=== PATIENT | male | born 1950 | race Caucasian/White ===

== ENCOUNTER 2018-03-01 07:42 | Emergency (ER) | payer MEDICARE, MEDICAID ==
[2018-03-01 07:52] VITALS: TEMP 98.1
--- NOTE | 2018-03-01 08:12 | C.PDOC ---
History Of Present Illness 68 y/o male with PMH of HTN presents to the ED biba c/o epistaxis episode x 2 hours. Pt bent over to tie his shoes this morning and experienced epistaxis, unable to control at home, prompting ED visit. No active bleeding now. Seen a pprox. 5 days ago at [facility] [place] for similar complaint, discharged home with Afrin, last dose this morning. Compliant with HTN medications, but did not take his dose of Amlodipine this morning. Denies dizziness, vision changes, palpitations, headache, abdominal pain, N/V, chest pain, SOB, weakness, numbness, paresthesias, or any other associated complaints. Time Seen by Provider: 03/01/18 07:50 Chief Complaint (Nursing): ENT Problem History Per: Patient Past Medical History Reviewed: Historical Data, Nursing Documentation, Vital Signs Vital Signs: Last Vital Signs Temp 98.1 F 03/01/18 07:49 Pulse 88 03/01/18 07:49 Resp 20 03/01/18 07:49 BP 146/82 03/01/18 07:49 Pulse Ox 98 03/01/18 07:49 - Medical History PMH: HTN Family History: States: No Known Family Hx - Social History Hx Alcohol Use: Yes Hx Substance Use: No - Immunization History Hx Tetanus Toxoid Vaccination: No Hx Influenza Vaccination: Yes Hx Pneumococcal Vaccination: Yes Review Of Systems Constitutional: Negative for: Fever, Chills Eyes: Negative for: Vision Change Physical Exam - Physical Exam Appears: Well, Non-toxic, No Acute Distress Skin: Normal Color, Warm, Dry Head: Atraumatic, Normacephalic, No Tenderness Eye(s): bilateral: Normal Inspection, PERRL, EOMI Ear(s): Bilateral: Normal Nose: Normal, No Epistaxis, No Deformity, No Tenderness, No Septal Hematoma, Other (dried blood bilateral nares; no active anterior or posterior bleeding) Oral Mucosa: Moist Throat: Normal Neck: Normal, Normal ROM Cardiovascular: Rhythm Regular Respiratory: Normal Breath Sounds Gastrointestinal/Abdominal: Normal Exam Back: Normal Inspection, No CVA Tenderness Extremity: Normal ROM, No Tenderness, Capillary Refill (<2s), No Deformity, No Swelling Extremity: Bilateral: Atraumatic, No Pedal Edema, Normal Color And Temperature, Normal ROM Pulses: Left Radial: Normal, Right Radial: Normal Neurological/Psych: Oriented x3, Normal Speech, Normal Cognition, Normal Cranial Nerves, Normal Motor, Normal Sensation Gait: Steady ED Course And Treatment - Laboratory Results Result Diagrams: 03/01/18 08:17 03/01/18 08:17 Lab Interpretation: No Acute Changes O2 Sat by Pulse Oximetry: 98 Medical Decision Making Medical Decision Making: Initial Plan: * CBC * CMP * Coags * Reassess and disposition Patient with no active bleeding throughout ED visit, asymptomatic with normal hemoglobin and coags. No active bleeding on exam. Stable for discharge home. Educated at length on proper hemostasis technique. Patient demonstrated technique and verbalized understanding. Patient will call Dr. Auguste, ENT today for followup. Diagnostic testing results and plan of care discussed with patient, and strict instructions given regarding prescriptions, importance of follow up, and signs to return to Emergency Department, to include uncontrollable epistaxis, headache, dizziness, vision changes, chest pain, or any other new/worsening symptoms. Patient verbalizes understanding of discussion. Patient A&Ox3, ambulating with steady gait, stable for discharge home. Disposition - Disposition Referrals: Adam Auguste MD [Staff Provider] - Disposition: HOME/ ROUTINE Disposition Time: 09:00 Condition: GOOD Additional Instructions: Continuar los medicamentos caseros segn lo prescrito. Sigue con ENT hoy Seguimiento con el mdico de cabecera dentro de 2 alvarado. Regrese a la anamaria de emergencias con cualquier sntoma nuevo o que empeore Instructions: Nosebleeds (DC) Forms: [employer] (Swiss) Print Language: INDONESIAN - Clinical Impression Clinical Impression: Epistaxis
[2018-03-01 08:21] LABS: BASO % 0.5 % (0.0-2.0); EOS # 0.1 K/uL (0.0-0.7); EOS % 0.9 % (0.0-4.0); LYMPH # 1.6 K/uL (1.0-4.3); LYMPH % 17.7 % (20.0-40.0); MEAN CELL VOLUME 95.4 fL (80.0-94.0); MEAN CORPUSCULAR HEMOGLOBIN 32.4 pg (27.0-31.0); MEAN CORPUSCULAR HGB CONC 33.9 g/dL (33.0-37.0); MEAN PLATELET VOLUME 11.1 fL (7.2-11.7); MONO # 0.6 K/uL (0.0-0.8); MONO % 6.2 % (0.0-10.0); NEUT # 6.7 K/uL (1.8-7.0); NEUT % 74.7 % (50.0-75.0); NRBC % 0.1 % (0.0-2.0); RBC 4.02 Mil/uL (4.40-5.90); RED CELL DISTRIBUTION WIDTH 13.8 % (11.5-14.5)
[2018-03-01 08:33] LABS: ALB/GLOB RATIO 1.5 (1.0-2.1); ALBUMIN 4.3 g/dL (3.5-5.0); ALT/SGPT 31 U/L (21-72); AST/SGOT 29 U/L (17-59); BLOOD UREA NITROGEN 14 mg/dL (9-20); CALCIUM 8.9 mg/dl (8.6-10.4); GFR NON-AFRICAN AMERICAN > 60
[2018-03-01 08:59] VITALS: BP 117/74; PULSE 66; RESP 18
[2018-03-01 09:00] LABS: INR 1.1; PROTHROMBIN TIME 11.8 SECONDS (9.7-12.2)
[2018-03-01 09:03] VITALS: O2SAT 98
== END 2018-03-01 09:13 | disposition home or self-care (01) ==
LOC: C.ER 07:42
DX: R04.0 Epistaxis (principal); I10 Essential (primary) hypertension

== ENCOUNTER 2018-03-03 08:12 | Emergency (ER) | payer MEDICARE, MEDICAID ==
--- NOTE | 2018-03-03 10:52 | C.PDOC ---
History Of Present Illness 68 y/o M p/w epistaxis from both nares since 1 hour prior to arrival. Patient had epistaxis in this ED and [facility] ED earlier this week, had packing performed, saw Dr. Auguste ENT in office 2 days ago, had packing removed. Denies dyspnea, vomiting, palpitations. Not on anticoagulation. Time Seen by Provider: 03/03/18 08:23 Chief Complaint (Nursing): ENT Problem Past Medical History Vital Signs: Last Vital Signs Temp 97.9 F 03/03/18 08:20 Pulse 99 H 03/03/18 08:20 Resp 20 03/03/18 08:20 BP 132/83 03/03/18 08:20 Pulse Ox 96 03/03/18 08:20 - Medical History PMH: HTN Family History: States: No Known Family Hx - Social History Hx Alcohol Use: Yes Hx Substance Use: No - Immunization History Hx Tetanus Toxoid Vaccination: No Hx Influenza Vaccination: Yes Hx Pneumococcal Vaccination: No Review Of Systems Except As Marked, All Systems Reviewed And Found Negative. Constitutional: Negative for: Fever Respiratory: Negative for: Shortness of Breath Physical Exam - Physical Exam Additional Physical Exam Comments: Gen: NAD Head: NC/AT Eyes: PERRL ENT: Bleeding from both nostrils, more on R. Neck: Supple CV: Regular rate Abd: Soft, NT Skin: No rash Neuro: Alert ED Course And Treatment O2 Sat by Pulse Oximetry: 96 Medical Decision Making Medical Decision Making: Posterior rhinorocket placed in R nare with hemostasis. Doxycycline prescribed. Dr. Auguste recommends discharge home and f/u with him in office on Monday, states office will be open in morning. Disposition - Disposition Referrals: Adam Auguste MD [Staff Provider] - Disposition: HOME/ ROUTINE Disposition Time: 10:48 Condition: STABLE Additional Instructions: Dr. Auguste's office is open on Monday in the morning. Prescriptions: RX: Doxycycline Monohydrate 1 cap PO BID #14 capsule Instructions: Nosebleeds Forms: [facility] (Italian) - Clinical Impression Clinical Impression: Epistaxis
[2018-03-03 11:17] VITALS: BP 129/83; PULSE 86; RESP 18; TEMP 98.2
[2018-03-03 11:42] VITALS: O2SAT 96
== END 2018-03-03 11:24 | disposition home or self-care (01) ==
LOC: C.ER 08:12
DX: R04.0 Epistaxis (principal); I10 Essential (primary) hypertension

== ENCOUNTER 2018-03-03 20:42 | Inpatient (IN) | payer MEDICARE, MEDICAID ==
[2018-03-03 21:52] LABS: BASO # 0.1 K/uL (0.0-0.2); BASO % 0.7 % (0.0-2.0); EOS # 0.1 K/uL (0.0-0.7); EOS % 0.4 % (0.0-4.0); HEMOGLOBIN 12.5 g/dL (12.0-18.0); LYMPH # 2.4 K/uL (1.0-4.3); LYMPH % 16.7 % (20.0-40.0); MEAN CELL VOLUME 94.8 fL (80.0-94.0); MEAN CORPUSCULAR HEMOGLOBIN 31.5 pg (27.0-31.0); MEAN CORPUSCULAR HGB CONC 33.2 g/dL (33.0-37.0); MEAN PLATELET VOLUME 11.8 fL (7.2-11.7); MONO % 6.8 % (0.0-10.0); NEUT % 75.4 % (50.0-75.0); RBC 3.96 Mil/uL (4.40-5.90); RED CELL DISTRIBUTION WIDTH 13.8 % (11.5-14.5); WHITE BLOOD COUNT 14.5 K/uL (4.8-10.8)
[2018-03-03 22:03] LABS: INR 1.2; PROTHROMBIN TIME 12.6 SECONDS (9.7-12.2)
--- NOTE | 2018-03-03 22:20 | C.PDOC ---
History Of Present Illness 68 year old male presents to the ER with epistaxis from the left nare since approx 1900. Patient was seen earlier today in our ER, as well as on 03/01/18 for epistaxis from the right nare. This morning the right nare was packed with A/P packing, patient was given neosynephrine spray and instructed to follow up with Dr. Auguste on 03/04/18. Patient has also been seen in several other EDs in the last 1 week for epistaxis complaints. He denies headache, dizziness, chest pain, SOB, trauma/injuries. Time Seen by Provider: 03/03/18 20:59 Chief Complaint (Nursing): ENT Problem History Per: Patient, Family History/Exam Limitations: None Onset/Duration Of Symptoms: Hrs Current Symptoms Are (Timing): Still Present Symptoms Have Been: Episodic Severity: Mild Past Medical History Reviewed: Historical Data, Nursing Documentation, Vital Signs Vital Signs: Last Vital Signs Temp 98.1 F 03/03/18 20:51 Pulse 104 H 03/03/18 20:51 Resp 22 03/03/18 20:51 BP 156/88 H 03/03/18 20:51 Pulse Ox 98 03/03/18 20:51 - Medical History PMH: HTN Family History: States: No Known Family Hx - Social History Hx Alcohol Use: Yes Hx Substance Use: No - Immunization History Hx Tetanus Toxoid Vaccination: No Hx Influenza Vaccination: Yes Hx Pneumococcal Vaccination: Yes Review Of Systems Constitutional: Negative for: Fever ENT: Positive for: Other (Epistaxis) Cardiovascular: Negative for: Chest Pain, Palpitations Respiratory: Negative for: Shortness of Breath Neurological: Negative for: Weakness, Numbness, Headache, Dizziness Physical Exam - Physical Exam Appears: Well, Non-toxic, Other (Mildly uncomfortable) Skin: Normal Color, Warm, Dry, No Rash Head: Normacephalic Eye(s): bilateral: Normal Inspection Nose: Other (Packing in right nare with no bleeding. Mild blood oozing from left nare.) Oral Mucosa: Moist Throat: Normal, No Erythema, No Exudate, No Drooling, No Other (no blood in posterior oropharynx) Neck: Normal, Supple Cardiovascular: Rhythm Regular (Mildly tachycardic), No Murmur Respiratory: Normal Breath Sounds, No Rales, No Rhonchi, No Wheezing Gastrointestinal/Abdominal: Normal Exam, Bowel Sounds, Soft, No Tenderness Neurological/Psych: Oriented x3 ED Course And Treatment - Laboratory Results Result Diagrams: 03/06/18 07:51 03/06/18 07:51 O2 Sat by Pulse Oximetry: 98 (Room air) Pulse Ox Interpretation: Normal Progress Note: Neosyneprhine sprayed into left nare. On reassessment, patient continued to have bleeding. Discussed patient with Dr. Auguste, who recommended packing of left nare and admission to hospitalist with him on consult. Discussed patient with hospitalist, since patient is insured, will admit to medicine insulation cutter and former. - Physician Consult Information Physician Contacted: Viviane Worthy Outcome Of Conversation: Discussed patient with medicine insulation cutter and former, she agrees with admission for recurrent epistaxis, B/L nasal packing. Dr. Auguste consulted for ENT. Disposition - Disposition Disposition: HOSPITALIZED Disposition Time: 23:11 Condition: STABLE - Clinical Impression Clinical Impression: Epistaxis, Recurrent epistaxis - Scribe Statement The provider has reviewed the documentation as recorded by the Scribyon Adams All medical record entries made by the Herminioibyon were at my direction and personally dictated by me. I have reviewed the chart and agree that the record accurately reflects my personal performance of the history, physical exam, medical decision making, and the department course for this patient. I have also personally directed, reviewed, and agree with the discharge instructions and disposition. Decision To Admit - Pt Status Changed To: Hospital Disposition Of: Observation - . Bed Request Type: Regular Admitting Physician: Viviane Worthy Patient Diagnosis: Epistaxis, Recurrent epistaxis
[2018-03-03 22:21] LABS: ALB/GLOB RATIO 1.5 (1.0-2.1); ALBUMIN 4.6 g/dL (3.5-5.0); ALT/SGPT 30 U/L (21-72); AST/SGOT 22 U/L (17-59); BLOOD UREA NITROGEN 13 mg/dL (9-20); GFR NON-AFRICAN AMERICAN > 60
[2018-03-04] MEDS ORDERED: EPINEPHrine 1:1000 Nasal Sol(30mL) ONE (00:57)
[2018-03-04] MEDS ORDERED: Midazolam 2 MG/2 ML VIAL ONE (01:31)
[2018-03-04] MEDS ORDERED: Propofol 10 mg/ml Inj (20 ML) ONE (01:31)
[2018-03-04] MEDS ORDERED: Succinylcholine Chloride 20 mg/ml Syr (5 ml) IV ONE (01:49)
[2018-03-04] MEDS ORDERED: HYDROmorphone 0.5 mg/0.5 ml ISec IVP PRN (02:01)
[2018-03-04] MEDS ORDERED: Oxycodone/Acetaminophen 5/325 mg Tab PO PRN (02:04)
[2018-03-04 03:21] VITALS: RESP 20
[2018-03-04 08:29] LABS: HEMOGLOBIN 11.2 g/dL (12.0-18.0); MEAN CORPUSCULAR HEMOGLOBIN 32.4 pg (27.0-31.0); MEAN CORPUSCULAR HGB CONC 33.8 g/dL (33.0-37.0); MEAN PLATELET VOLUME 12.3 fL (7.2-11.7); RBC 3.46 Mil/uL (4.40-5.90); WHITE BLOOD COUNT 13.6 K/uL (4.8-10.8)
[2018-03-04 08:35] LABS: IRON 32 ug/dL (49-181)
[2018-03-04 08:44] LABS: % IRON SATURATION 10 (20-55); TOTAL IRON BINDING CAPACITY 321 ug/dL (250-450)
[2018-03-04 09:41] LABS: FOLATE 18.2 ng/mL
[2018-03-04] MEDS ORDERED: Pneumococcal 23-Valent Vaccine IM ONE (14:00)
[2018-03-05 07:45] LABS: HEMOGLOBIN 11.7 g/dL (12.0-18.0); MEAN CELL VOLUME 95.9 fL (80.0-94.0); MEAN CORPUSCULAR HEMOGLOBIN 32.2 pg (27.0-31.0); RBC 3.62 Mil/uL (4.40-5.90); WHITE BLOOD COUNT 18.8 K/uL (4.8-10.8)
[2018-03-05 07:46] LABS: MEAN CORPUSCULAR HGB CONC 33.6 g/dL (33.0-37.0); MEAN PLATELET VOLUME 11.8 fL (7.2-11.7); RED CELL DISTRIBUTION WIDTH 14.1 % (11.5-14.5)
[2018-03-05 08:00] LABS: BLOOD UREA NITROGEN 12 mg/dL (9-20); GFR NON-AFRICAN AMERICAN > 60
--- NOTE | 2018-03-05 10:44 | HP ---
The patient was seen and examined at the bedside on 03/04/2018. CHIEF COMPLAINT: Nose bleeding. HISTORY OF PRESENT ILLNESS: Mr. Franko Salgado is a 68-year-old male, who came to the emergency room with epistaxis from the left nose, The patient was seen earlier on the day of admission for epistaxis of the right naris, this morning the right naris was packed with AP packing, was given , epinephrine. Advised to follow with Dr. Auguste on 03/04/2018. The patient then has been seen in the multiple ER over the last week for epistaxis. He denies any chest pain, shortness of breath. No weakness. No nausea, vomiting, or diarrhea. No hematuria. No headache. No dizziness. PAST MEDICAL HISTORY: Hypertension. FAMILY HISTORY: Unknown. SOCIAL HISTORY: Alcohol, yes. No smoking. No drugs. REVIEW OF SYSTEMS: The patient was seen and examined at the bedside. Looking comfortable. No fever. No chills. No hematuria or hematochezia. No swelling of the leg. No chest pain. No palpitation. No headaches. No dizziness. PHYSICAL EXAMINATION: VITAL SIGNS: Temperature 98.1, pulse 104, respiratory rate 22, blood pressure 152/88, pulse oximetry 98. HEENT: Head: Normocephalic and atraumatic. Eyes: PERRLA. Extraocular muscles are intact. Conjunctivae clear. Nose patent. Mucous membranes are moist. NECK: Supple. No carotid bruits, JVD, or thyromegaly. CHEST: Bilaterally symmetrical. HEART: S1 and S2 positive. LUNGS: Clear to auscultation. ABDOMEN: Soft. Bowel sounds present. No organomegaly. EXTREMITIES: No edema. No cyanosis. NEUROLOGIC: The patient is awake and alert. Follows simple commands. LABORATORY DATA: White blood cells 14.5, hemoglobin 12.5, hematocrit 37.5, platelets 154. Repeat hemoglobin is 11.2. Sodium 140, potassium 3.7, BUN 13, creatinine 0.8. Glucose 122, 131. Iron 32, saturation is 10. ASSESSMENT AND PLAN: Mr. Franko Salgado is a 68-year-old male with leukocytosis, anemia, hyperglycemia, iron deficiency, came with intractable, had ER visits . Dr. Auguste did the packing but still it was bleeding, and today, he went to OR for epistaxis, anterior/posterior packing of naris, bill by Dr. Adam Auguste MD. History of hypertension, stable. Gastric and deep venous thrombosis prophylaxis. Repeat labs. Ear, Nose, Throat is on the case. We will follow. Viviane oWrthy MD MTDKyra
--- NOTE | 2018-03-05 12:30 | CP.PCM.PN ---
Subjective - Date & Time of Evaluation Date of Evaluation: 03/05/18 Time of Evaluation: 12:28 - Subjective Subjective: No bledding. Pack removed, no epistaxis noted on right nose: no epistaxis oc/op: no blooding pnd a/p: epistaxis controled ok to d/c home if not bleeding after 2 hours Objective - Vital Signs/Intake and Output Vital Signs (last 24 hours): Temp Pulse Resp BP Pulse Ox 98.2 F 93 H 20 127/80 98 03/05/18 08:34 03/05/18 08:34 03/05/18 08:34 03/05/18 08:34 03/05/18 12:00 - Medications Medications: Current Medications Amlodipine Besylate (Norvasc) 5 mg PO DAILY [facility] Last Admin: 03/05/18 09:17 Dose: 5 mg Losartan Potassium (Cozaar) 50 mg PO DAILY [facility] Last Admin: 03/05/18 09:17 Dose: 50 mg Montelukast Sodium (Singulair) 10 mg PO [facility] Last Admin: 03/04/18 21:08 Dose: 10 mg Moxifloxacin HCl (Avelox) 400 mg PO DAILY [facility]; Protocol Last Admin: 03/05/18 09:17 Dose: 400 mg Oxycodone/Acetaminophen (Percocet 5/325 Mg Tab) 1 tab PO Q4H PRN PRN Reason: Pain, moderate (4-7) Stop: 03/07/18 02:05 Pneumococcal Polyvalent Vaccine (Pneumovax 23 Vaccine) 0.5 ml IM .ONCE ONE Stop: 03/06/18 10:01 Rosuvastatin Calcium (Crestor) 5 mg PO [facility] Last Admin: 03/04/18 21:08 Dose: 5 mg - Labs Labs: 03/05/18 07:30 03/05/18 07:30 PT 12.6 SECONDS (9.7-12.2) H 03/03/18 21:48 INR 1.2 03/03/18 21:48 APTT 30 SECONDS (21-34) 03/03/18 21:48
[2018-03-06 01:30] VITALS: TEMP 97.6
--- NOTE | 2018-03-06 04:20 | PN ---
DATE: 03/05/2018 SUBJECTIVE: The patient was seen and examined at the bedside on 03/05/2018, looking comfortable. Packing removed by Dr. Auguste. No bleeding or epistaxis after that. No blood holding in the nostril. Epistaxis controlled. No fever. No chills. No hematuria. No hematochezia. No headache. No dizziness. No chest pain. No palpitation. PHYSICAL EXAMINATION: VITAL SIGNS: Temperature 98.2, pulse 93, respirations 20, blood pressure 127/80, pulse oximetry 98. HEENT: Head, normocephalic and atraumatic. Eyes, PERRLA. Extraocular muscles are intact. Conjunctivae clear. Nose patent. NECK: Supple. No carotid bruits. No JVD or thyromegaly. CHEST: Bilaterally symmetrical HEART: S1 and S2 positive. LUNGS: Clear to auscultation. ABDOMEN: Soft. Bowel sounds present. No organomegaly. EXTREMITIES: No edema. No cyanosis. NEUROLOGIC: The patient is awake and alert. Moving all four extremities. No focal deficits. MEDICATIONS: Norvasc, Cozaar, Singulair, Avelox, Percocet, Pneumovax, Crestor. LABORATORY DATA: White blood cell 18.8, hemoglobin 11.7, hematocrit 34.7, platelets 150. Sodium 138, potassium 3.6, BUN 12, creatinine 0.8, glucose 140. ASSESSMENT AND PLAN: Jack Salgado is a 68-year-old male with leukocytosis, anemia, hyperglycemia, came with epistaxis intractable, treated by Dr. Auguste. Now packing is removed. No epistaxis noted. No bleeding. White blood cell is a little bit high. Past medical history of hypertension, getting controlled. Gastric and deep venous thrombosis prophylaxis given. Getting Losartan for hypertension, Crestor for hypercholesterolemia, amlodipine for blood pressure, oxycodone given for pain, Singulair given. Repeat labs. We will follow up. Viviane Worthy MD
[2018-03-06 08:00] LABS: MEAN CELL VOLUME 95.9 fL (80.0-94.0); MEAN CORPUSCULAR HEMOGLOBIN 32.3 pg (27.0-31.0); MEAN CORPUSCULAR HGB CONC 33.7 g/dL (33.0-37.0); MEAN PLATELET VOLUME 11.3 fL (7.2-11.7); RBC 3.41 Mil/uL (4.40-5.90); RED CELL DISTRIBUTION WIDTH 13.9 % (11.5-14.5); WHITE BLOOD COUNT 13.9 K/uL (4.8-10.8)
[2018-03-06 08:12] LABS: BLOOD UREA NITROGEN 18 mg/dL (9-20); CALCIUM 8.7 mg/dl (8.6-10.4); GFR NON-AFRICAN AMERICAN > 60
--- NOTE | 2018-03-06 08:35 | CARD ---
APPROVED REPORT Date of service: 03/04/2018 EKG Measurement Heart [id number] <Conclusion> Normal sinus rhythm Normal ECG
[2018-03-06 08:43] VITALS: BP 103/66; PULSE 85
[2018-03-06] MEDS ORDERED: Pneumococcal 23-Valent Vaccine IM ONE (10:00)
[2018-03-06] MEDS ORDERED: Ferrous Fum/Folic Acid/IF/VI 1 Cap PO SCH (10:00)
[2018-03-06] MEDS ORDERED: Fluticasone Nasal 50 mcg/Spray NAS SCH (11:45)
--- NOTE | 2018-03-07 07:27 | DS ---
The patient was seen and examined at the bedside on 03/06/2018. CHIEF COMPLAINT: Nose bleeding. HISTORY OF PRESENT ILLNESS: Mr. Franko Salgado is a 68-year-old male, came to the emergency department with epistaxis from the left nostril. The patient was seen earlier on the day of admission for epistaxis of the nostril. This morning, naris was packed with package. The patient was sent home with epinephrine. Advised a followup with Dr. Auguste but the patient then been seen multiple times in the ER over the last week for epistaxis. He denies chest pain, shortness of breath, nausea, vomiting, or diarrhea. Finally, the patient was admitted. Dr. Sudheer Torres did the cauterization and packing. The patient was improved. The packing was removed. Now Dr. Auguste cleared the patient for discharge. was standing on the bedside. Nasal spray, Singulair, given because of congestion. Through the workers compensation attorney medical condition was explained to the and . Will follow up in my office tomorrow and will follow up with Dr. Auguste. PAST MEDICAL HISTORY: Hypertension. FAMILY HISTORY: Unknown. SOCIAL HISTORY: Alcohol, yes. No smoking. No drugs. No ethanol. REVIEW OF SYSTEMS: The patient was seen and examined at the bedside early in the morning, looking comfortable. No fever. No chills. No hematuria. No hematochezia. No headache. No dizziness. No chest pain. No palpitation. PHYSICAL EXAMINATION: VITAL SIGNS: Temperature 97.6, pulse 85, respiratory rate 20, blood pressure 107/56. HEENT: Head normocephalic and atraumatic. Eyes, PERRLA. Extraocular muscles are intact. Conjunctivae clear. Nose patent. Old blood clots are adhered to the nostrils; otherwise, no fresh bleeding. Mucous membranes moist. NECK: Supple. No carotid bruits or thyromegaly. CHEST: Bilaterally symmetrical. HEART: S1 and S2 positive. LUNGS: Clear to auscultation. ABDOMEN: Soft. Bowel sounds present. No organomegaly. EXTREMITIES: No edema. No cyanosis. NEUROLOGIC: The patient is awake and alert. Moving all four extremities. No focal deficits. LABORATORY DATA: White blood cell is 13.9, hemoglobin 11.0, hematocrit 32.7, platelets 158. Sodium 138, potassium 3.8, BUN 18, creatinine 0.8, glucose 107. ASSESSMENT AND PLAN: Mr. Franko Salgado is a 68-year-old male with leukocytosis trending down with anemia, hyperglycemia, iron deficiency, history of hypertension, was admitted with multiple times epistaxis. Procedure was done by Dr. Auguste. Packing removed. Gastric and deep venous thrombosis prophylaxis given. Losartan, Singulair, Zyrtec and nasal spray were given. Appreciated Dr. Auguste's input. He cleared the patient for discharge. This patient was advised and the patient's niece was standing on the bedside also. We will repeat labs. We will follow up. Viviane Worthy MD MTDD
[2018-03-11 03:15] VITALS: O2SAT 98
--- NOTE | 2018-03-15 01:34 | OP ---
PROCEDURE DATE: 03/06/2018 PREOPERATIVE DIAGNOSIS: Posterior epistaxis. POSTOPERATIVE DIAGNOSIS: Posterior epistaxis. SIGNIFICANT FINDINGS: Posterior epistaxis. DESCRIPTION OF PROCEDURE: The patient was brought into room, placed in supine position. Anesthesia was initiated through an ET tube. Packing was removed. Gomez was inflated to nasal cavity. The balloon was inflated with saline while it was in nasopharynx. Vaseline gauze was used to pack the nose from posterior to anterior direction on both sides. Clamp was used to secure the Gomez in place. The patient was taken off anesthesia, taken to recovery room in stable manner. Adam Auguste MD
== END 2018-03-06 13:30 | disposition home or self-care (01) | DRG 151 ==
LOC: C.ER 20:42 → C.3T 23:11 → C.9E 03-04 00:31 → C.3T 03-04 00:38 → C.6T 03-04 02:37 → OBSVTOIN 03-05 16:03
PROVIDERS: ADMIT Internal Medicine; ATTEND Internal Medicine
PROC: 2Y41X5Z Packing of Nasal Region using Packing Material (ICD-10-PCS; principal; 2018-03-05)
DX: R04.0 Epistaxis (principal); I10 Essential (primary) hypertension; E78.00 Pure hypercholesterolemia, unspecified; D72.829 Elevated white blood cell count, unspecified; D50.9 Iron deficiency anemia, unspecified

== ENCOUNTER 2018-03-25 10:31 | Emergency (ER) | payer MEDICARE, MEDICAID ==
[2018-03-25 10:43] VITALS: RESP 18
[2018-03-25] MEDS ORDERED: Oxymetazoline 0.05% Nasal Spray (30 ml) NS STA (11:32)
--- NOTE | 2018-03-25 11:35 | C.PDOC ---
History Of Present Illness 68 year old male presents to the emergency department with complaints of a frontal headache since yesterday. Patient describes the headache as 5/10 in severity, he states that it is not the worst headache of his life and denies thunderclap onset. Patient reports taking Motrin 3 hours ago, with no relief. Patient states that he thinks the headache is due to working 12 hours each day and only sleeping 3-4 hours per night. Patient denies trauma, fever, chills, nausea, vomiting, neck pain, and visual changes. Time Seen by Provider: 03/25/18 11:07 Chief Complaint (Nursing): ENT Problem History Per: Patient Past Medical History Vital Signs: Last Vital Signs Temp 98 F 03/25/18 10:40 Pulse 84 03/25/18 10:40 Resp 18 03/25/18 10:40 BP 126/68 03/25/18 10:40 Pulse Ox 97 03/25/18 10:40 - Medical History PMH: HTN - [facility] PACKING OF NASAL REGION USING PACKING MATERIAL (03/05/18) Family History: States: Unknown Family Hx - Social History Hx Alcohol Use: Yes Hx Substance Use: No - Immunization History Hx Tetanus Toxoid Vaccination: No Hx Influenza Vaccination: Yes Hx Pneumococcal Vaccination: Yes ED Course And Treatment O2 Sat by Pulse Oximetry: 97 Disposition - Disposition
--- NOTE | 2018-03-25 12:21 | C.PDOC ---
History Of Present Illness 68 year old male presents to the emergency department with complaints of epistaxis from his right nare status-post making a bowel movement today.Patient states that he recently underwent a cauterization procedure to the right nare by Dr. Auguste. Patient denies headache, nausea, vomiting. Patient states that he is not taking blood thinners. Time Seen by Provider: 03/25/18 11:07 Chief Complaint (Nursing): ENT Problem History Per: Patient History/Exam Limitations: no limitations Onset/Duration Of Symptoms: Hrs Current Symptoms Are (Timing): Still Present Location Of Bleeding: Right Nare Associated Symptoms: denies: Syncope, Lightheadedness, Nasal Congestion, Nasal Drainage Past Medical History Reviewed: Historical Data, Nursing Documentation, Vital Signs Vital Signs: Last Vital Signs Temp 98 F 03/25/18 10:40 Pulse 84 03/25/18 10:40 Resp 18 03/25/18 10:40 BP 126/68 03/25/18 10:40 Pulse Ox 97 03/25/18 10:40 - Medical History PMH: HTN Surgical History: No Surg Hx - [facility] Procedures PACKING OF NASAL REGION USING PACKING MATERIAL (03/05/18) Family History: States: No Known Family Hx - Social History Hx Alcohol Use: Yes Hx Substance Use: No - Immunization History Hx Tetanus Toxoid Vaccination: No Hx Influenza Vaccination: Yes Hx Pneumococcal Vaccination: Yes Review Of Systems Except As Marked, All Systems Reviewed And Found Negative. Constitutional: Negative for: Fever, Chills ENT: Positive for: Nose Discharge (epistaxis right nare) Gastrointestinal: Negative for: Nausea, Vomiting Musculoskeletal: Negative for: Neck Pain Physical Exam - Physical Exam Appears: Non-toxic, No Acute Distress Skin: Normal Color, Warm, Dry Head: Atraumatic, Normacephalic Eye(s): bilateral: Normal Inspection, PERRL, EOMI Nose: Other (No active bleeding from the nares B/L. Swollen turbinates B/L. Dry blood present in nares B/L/. ) Oral Mucosa: Moist Throat: Normal, No Other (blood in posterior oropharynx) Neck: Normal, Supple Neurological/Psych: Oriented x3, Normal Speech, Normal Cognition ED Course And Treatment O2 Sat by Pulse Oximetry: 97 (RA) Pulse Ox Interpretation: Normal Medical Decision Making Medical Decision Making: Plan: Afrin 30ml NS 11:57 Patient went to the bathroom in the ED and began bleeding again. Patient blew out clots with some oozing of blood. Patient instructed to apply pressure for 10 minutes. After 15 minutes of compress, no bleeding. Patient instructed to use Afrin twice daily, has already used it once in the ED, instructed to use before sleeping tonight. Patient will follow-up with Dr. Auguste. Disposition Counseled Patient/Family Regarding: Diagnosis, Need For Followup - Disposition Referrals: Adam Auguste MD [Staff Provider] - Disposition: HOME/ ROUTINE Disposition Time: 12:25 Condition: IMPROVED Additional Instructions: ARIANNA GOMES, thank you for letting us take care of you today. Your provider was Becka Jimenez MD and you were treated for NOSE BLEED. The emergency medical care you received today was directed at your acute symptoms. If you were prescribed any medication, please fill it and take as directed. It may take several days for your symptoms to resolve. Return to the Emergency Department if your symptoms worsen, do not improve, or if you have any other problems. Please contact your doctor in 1 day for a follow up appointment. Bring any paperwork you were given at discharge with you along with any medications you are taking to your follow up visit. Our treatment cannot replace ongoing medical care by a primary care provider outside of the emergency department. Thank you for allowing the [facility] team to be part of your care today. Prescriptions: Oxymetazoline 0.05% [Afrin 0.05%] 30 spr NS Q12H #1 bottle Instructions: Nosebleeds (DC) Forms: [facility] (Portuguese) Print Language: SWAZI - POA Present On Arrival: None - Clinical Impression Clinical Impression: Recurrent epistaxis - Scribe Statement The provider has reviewed the documentation as recorded by the Scribe (Moiz Chencho) Provider Attestation: All medical record entries made by the Scribe were at my direction and personally dictated by me. I have reviewed the chart and agree that the record accurately reflects my personal performance of the history, physical exam, medical decision making, and the department course for this patient. I have also personally directed, reviewed, and agree with the discharge instructions and disposition.
[2018-03-25 12:55] VITALS: BP 118/69; PULSE 69; TEMP 98.6; O2SAT 98
== END 2018-03-25 12:53 | disposition home or self-care (01) ==
LOC: C.ER 10:31
DX: R04.0 Epistaxis (principal); I10 Essential (primary) hypertension

== ENCOUNTER 2018-03-29 09:56 | Inpatient (IN) | payer MEDICARE, MEDICAID ==
[2018-03-29 10:49] LABS: BASO # 0.1 K/uL (0.0-0.2); EOS # 0.3 K/uL (0.0-0.7); LYMPH % 17.4 % (20.0-40.0); MONO # 0.5 K/uL (0.0-0.8)
[2018-03-29 10:55] LABS: BASO % 0.8 % (0.0-2.0); EOS % 2.9 % (0.0-4.0); HEMOGLOBIN 12.5 g/dL (12.0-18.0); LYMPH # 1.8 K/uL (1.0-4.3); MEAN CELL VOLUME 95.7 fL (80.0-94.0); MEAN CORPUSCULAR HEMOGLOBIN 31.8 pg (27.0-31.0); MEAN CORPUSCULAR HGB CONC 33.2 g/dL (33.0-37.0); MEAN PLATELET VOLUME 11.4 fL (7.2-11.7); MONO % 4.8 % (0.0-10.0); NEUT # 7.5 K/uL (1.8-7.0); NEUT % 74.1 % (50.0-75.0); NRBC % 0.1 % (0.0-2.0); RBC 3.92 Mil/uL (4.40-5.90); RED CELL DISTRIBUTION WIDTH 14.3 % (11.5-14.5); WHITE BLOOD COUNT 10.2 K/uL (4.8-10.8)
[2018-03-29 10:56] LABS: INR 1.1; PROTHROMBIN TIME 11.8 SECONDS (9.7-12.2)
[2018-03-29 11:22] LABS: ALB/GLOB RATIO 1.6 (1.0-2.1); ALBUMIN 4.4 g/dL (3.5-5.0); ALT/SGPT 23 U/L (21-72); AST/SGOT 24 U/L (17-59); BLOOD UREA NITROGEN 10 mg/dL (9-20); GFR NON-AFRICAN AMERICAN > 60
--- NOTE | 2018-03-29 11:32 | C.PDOC ---
History Of Present Illness 68yo male, sent to ER by Dr. Auguste for evaluation due to several episodes of epistaxis, with most recent episode occurring at 4AM today. Patient states he went to Dr. Auguste's office this morning and he was examined via a scope, and Dr. Auguste noted patient had a right sided posterior bleed. Per Dr. Auguste, since patient has a cochlear implant, the bleed cannot be cauterized and needs to be embolized. Patient sent to ER for further evaluation and possible examination by interventional neurosurgery. Patient at this time, has no complaints; he denies any headaches, weakness, and offers no additional complaints. Patient is not on any anti-coagulants. Time Seen by Provider: 03/29/18 10:19 Chief Complaint (Nursing): ENT Problem History Per: Patient History/Exam Limitations: None Onset/Duration Of Symptoms: Hrs Current Symptoms Are (Timing): Gone Past Medical History Reviewed: Historical Data, Nursing Documentation, Vital Signs Vital Signs: Last Vital Signs Temp 97.6 F 03/29/18 10:03 Pulse 72 03/29/18 10:03 Resp 17 03/29/18 10:03 BP 111/72 03/29/18 10:03 Pulse Ox 100 03/29/18 10:03 - Medical History PMH: HTN Surgical History: No Surg Hx - [facility] Procedures PACKING OF NASAL REGION USING PACKING MATERIAL (03/05/18) Family History: States: No Known Family Hx - Social History Hx Alcohol Use: Yes Hx Substance Use: No - Immunization History Hx Tetanus Toxoid Vaccination: Yes Hx Influenza Vaccination: Yes Hx Pneumococcal Vaccination: Yes Review Of Systems Constitutional: Negative for: Weakness Eyes: Negative for: Vision Change ENT: Positive for: Other (epistaxis, now resolved) Cardiovascular: Negative for: Chest Pain Respiratory: Negative for: Shortness of Breath Neurological: Negative for: Weakness, Numbness, Headache Physical Exam - Physical Exam Appears: Non-toxic, No Acute Distress Skin: Normal Color, Warm, Dry, No Pale Head: Atraumatic, Normacephalic Eye(s): bilateral: Normal Inspection, PERRL, EOMI Ear(s): Left: Other (cochlear implant noted), Right: Normal Nose: Normal, Other (dried blood noted to bilateral nares) Neck: Normal ROM, Supple Chest: Symmetrical Cardiovascular: Rhythm Regular Respiratory: Normal Breath Sounds Gastrointestinal/Abdominal: Normal Exam, Soft Extremity: Normal ROM Neurological/Psych: Oriented x3, Normal Speech, Normal Cognition, Normal Motor, Normal Sensation ED Course And Treatment - Laboratory Results Result Diagrams: 03/29/18 10:44 03/29/18 10:44 Lab Results: PT 11.8 SECONDS (9.7-12.2) 03/29/18 10:44 INR 1.1 03/29/18 10:44 APTT 34 SECONDS (21-34) 03/29/18 10:44 Total Bilirubin 0.4 mg/dL (0.2-1.3) 03/29/18 10:44 AST 24 U/L (17-59) 03/29/18 10:44 ALT 23 U/L (21-72) 03/29/18 10:44 Alkaline Phosphatase 57 U/L (38-126) 03/29/18 10:44 Total Protein 7.2 g/dL (6.3-8.3) 03/29/18 10:44 Albumin 4.4 g/dL (3.5-5.0) 03/29/18 10:44 Globulin 2.8 gm/dL (2.2-3.9) 03/29/18 10:44 Albumin/Globulin Ratio 1.6 (1.0-2.1) 03/29/18 10:44 O2 Sat by Pulse Oximetry: 100 (RA) Pulse Ox Interpretation: Normal Progress Note: Basic labs - CMP, CBC ordered. Paged R D MANAGER with Dr. Aguilar (Suzette Salazar). Labs reviewed, no clinically significant abnormalities noted. 12:[address] Aguilar, who states to admit under hospitalist. 1300: Case discussed with Dr. Das, who admits patient under her service. - Physician Consult Information Time Consulting Physician Contacted: 11:30 Physician Contacted: Marielos Salazar ([phone] [email or web address]) Outcome Of Conversation: will come to evaluate patient in the ED Disposition - Disposition Forms: [facility] (Persian) - Scribe Statement The provider has reviewed the documentation as recorded by the Azar Hartmann Provider Attestation: All medical record entries made by the Scribe were at my direction and personally dictated by me. I have reviewed the chart and agree that the record accurately reflects my personal performance of the history, physical exam, medical decision making, and the department course for this patient. I have also personally directed, reviewed, and agree with the discharge instructions and disposition.
[2018-03-29] MEDS ORDERED: Absorbable Gelatin Sponge Size 12-7 ONE (12:55)
[2018-03-29] MEDS ORDERED: Propofol 10 mg/ml Inj (20 ML) ONE (13:22)
[2018-03-29] MEDS ORDERED: Succinylcholine Chloride 20 mg/ml Syr (5 ml) IV ONE (13:22)
--- NOTE | 2018-03-29 13:28 | CP.PCM.CON ---
History of Present Illness - History of Present Illness History of Present Illness: 68 yeart old man with past medical history of hypertension and cochlear implant presenting from ENT office this am. The patient has had recurrent episodes of epistaxis last one was at 4 am . He went to his ENT and was scoped and told that it was a right Posterior epistaxis and could not be cautarized. He was sent to ed for further evaluation and management Review of Systems - EENT Ears: Decreased Hearing Past Patient History - Past Medical History & Family History Past Medical History?: Yes - Past Social History Smoking Status: Never Smoked - CARDIAC Hx Hypertension: Yes - HEENT Hx Epistaxis: Yes - MUSCULOSKELETAL/RHEUMATOLOGICAL Hx Falls: Yes - PSYCHIATRIC Hx Substance Use: No - SURGICAL HISTORY Other/Comment: HEARING AID IMPLANTS. Penile pump - ANESTHESIA Hx Anesthesia: Yes Hx Anesthesia Reactions: No Meds Allergies/Adverse Reactions: Allergies Allergy/AdvReac Type Severity Reaction Status Date / Time aspirin Allergy Verified 03/29/18 10:08 Penicillins Allergy Verified 03/29/18 10:08 Sulfa (Sulfonamide Allergy Verified 03/29/18 10:08 Antibiotics) Physical Exam - Constitutional Appears: Non-toxic - Head Exam Head Exam: ATRAUMATIC Results - Vital Signs Recent Vital Signs: Last Vital Signs Temp 97.6 F 03/29/18 10:03 Pulse 54 L 03/29/18 12:29 Resp 16 03/29/18 12:29 BP 124/74 03/29/18 12:29 Pulse Ox 100 03/29/18 13:01 - Labs Result Diagrams: 03/29/18 10:44 03/29/18 10:44 Labs: Laboratory Results - last 24 hr 03/29/18 03/29/18 03/29/18 10:44 10:44 10:44 WBC 10.2 RBC 3.92 L Hgb 12.5 Hct 37.5 MCV 95.7 H MCH 31.8 H MCHC 33.2 RDW 14.3 Plt Count 131 MPV 11.4 Neut % (Auto) 74.1 Lymph % (Auto) 17.[address] [place] % (Auto) 4.8 Eos % (Auto) 2.9 Baso % (Auto) 0.8 Neut # (Auto) 7.5 H Lymph # (Auto) 1.8 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
[2018-03-29] MEDS ORDERED: Lidocaine 1% 20 MG/2 ML PF AMP ONE (13:31)
--- NOTE | 2018-03-29 13:47 | PCM.IRPREO ---
Pre Procedure Note - History Proposed Procedure: Cerebral Angiogram, embolization of spatopalatine arteries b/l for epistaxis Pre-Op Diagnosis: Epistaxis - Previous Medical/Surgical History Cardiac: Hypertension Pain: 0. No Pain Previous Surgical History: Penile Implant; L and R cochlear implants - Pre Procedure Were any radiologic studies performed in the last 12 months: Not Applicable Was medical management performed in the past 24 months: Not Applicable Clinical indication for the procedure: epistaxis Have risks and benefits been explained to the patient: Yes Risks and benefits been explained to the patient: please see above Have alternatives to surgery explained to the patient as applicable: Yes (Planned procedure, benefits and risks including but not limited to groin infection, arterial occlusion, injury, renal impairment, CVA/Brain hemorrhage resulting in irreversible neurological deficits and even were explained to Mr.Diaz Taylor and in detail. Patient agrees to proceeed and informed consent was obtained.) - Allergies Allergies: Allergies aspirin Allergy (Verified 03/29/18 10:08) Penicillins Allergy (Verified 03/29/18 10:08) Sulfa (Sulfonamide Antibiotics) Allergy (Verified 03/29/18 10:08) - Current Medications Current Medications: Amlodipine 5mg daily Atorvastatin 10mg QOD Montelukast 10mg PRN - Physical Exam Vital Signs: Vital Signs 03/29/18 03/29/18 03/29/18 10:03 12:29 13:01 Temperature 97.6 F Pulse Rate 72 54 L Respiratory 17 16 Rate Blood Pressure 111/72 124/74 O2 Sat by Pulse 100 99 100 Oximetry Mental Status: Alert & Oriented x3 Neuro: WNL Heart: WNL Lungs: WNL - Specialist Directed Exam ENT: Other (dry blood noted via right nare; cochlear implants via Left and Right ears) - Impression Impression: 68 year old male with PmHx HTN,epistaxis PSHx cochlear implant, penile implant - Date & Time Date: 03/29/18 Time: 13:45
[2018-03-29] MEDS ORDERED: Rocuronium 10 mg/ml (5 ml) ONE (14:03)
[2018-03-29] MEDS ORDERED: Neostigmine 1:1000 (1 mg/ml) Inj ONE (14:43)
[2018-03-29] MEDS ORDERED: ePHEDrine 50 mg/ml Inj ONE (14:51)
[2018-03-29] MEDS ORDERED: Iodixanol 320 MG/ML 100 ML BOTTLE IV ONE (14:55)
--- NOTE | 2018-03-29 15:53 | CP.PCM.HP ---
History of Present Illness - History of Present Illness History of Present Illness: PGY-[address] Burt Patient is a 68 year old male with PMHx HTN, and deafness (unclear if congenital vs secondary) who is admitted to hospitalist service status-post IR embolization of sphenopalantine arteries b/l for uncontrolled epistaxis. History obtained primarily via IR AD COPY WRITER as patient somnolent status-post procedure/anesthesia. Per patient's , patient has a history of thrombocytopenia, though they are unsu re of the cause and his platelets today are within normal limits. She states that he had been having nose bleeds more frequently recently and patient was referred to Dr. Maay, ENT who peformed a scope but did not cauterize due to contraindication of bilateral cochlear implants. Patient was referred to IR for cauterization. PMHx: HTN, bilateral deafness Allergies: ASA, Penicillin, Sulfa (reaction unknown) Surgical Hx: Cochlear impants, penile implant Family Hx: No significant family hx Medications: Norvasc 5 mg daily, Telmisartan 20 mg po daily Social Hx: Denies tobacco, alcohol, drug use PMD: Dr. William Murray Present on Admission - Present on Admission Any Indicators Present on Admission: No Review of Systems - Constitutional Constitutional: absent: Chills, Fatigue, Fever - EENT Eyes: absent: Blurred Vision, Diplopia Ears: absent: Dizziness Nose/Mouth/Throat: absent: Epistaxis, Nasal Congestion - Cardiovascular Cardiovascular: absent: Chest Pain, Diaphoresis, Dyspnea - Respiratory Respiratory: absent: Cough, Dyspnea - Gastrointestinal Gastrointestinal: absent: Abdominal Pain, Diarrhea, Nausea - Genitourinary Genitourinary: absent: Dysuria, Hematuria - Musculoskeletal Musculoskeletal: absent: Muscle Weakness, Stiffness - Neurological Neurological: absent: Dizziness, Numbness, Tingling - Psychiatric Psychiatric: absent: Anxiety, Depression - Hematologic/Lymphatic Hematologic: Easy Bleeding. absent: Easy Bruising Past Patient History - Past Medical History & Family History Past Medical History?: Yes - Past Social History Smoking Status: Never Smoked - CARDIAC Hx Hypertension: Yes - HEENT Hx Epistaxis: Yes - MUSCULOSKELETAL/RHEUMATOLOGICAL Hx Falls: Yes - PSYCHIATRIC Hx Substance Use: No - SURGICAL HISTORY Other/Comment: HEARING AID IMPLANTS. Penile pump - ANESTHESIA Hx Anesthesia: Yes Hx Anesthesia Reactions: No Meds Allergies/Adverse Reactions: Allergies Allergy/AdvReac Type Severity Reaction Status Date / Time aspirin Allergy Verified 03/29/18 10:08 Penicillins Allergy Verified 03/29/18 10:08 Sulfa (Sulfonamide Allergy Verified 03/29/18 10:08 Antibiotics) Physical Exam - Head Exam Head Exam: ATRAUMATIC, NORMOCEPHALIC - Eye Exam Eye Exam: EOMI, Normal appearance - ENT Exam ENT Exam: Mucous Membranes Moist - Respiratory Exam Respiratory Exam: Clear to Auscultation Bilateral, NORMAL BREATHING PATTERN. absent: Rhonchi, Wheezes - Cardiovascular Exam Cardiovascular Exam: REGULAR RHYTHM, +S1, +S2 - GI/Abdominal Exam GI & Abdominal Exam: Normal Bowel Sounds, Soft. absent: Tenderness - Extremities Exam Extremities exam: Negative for: pedal edema Additional comments: Mild tenderness over cath site R groin, dressings c/d/i - Neurological Exam Neurological exam: Alert, CN II-XII Intact, Oriented x3 - Psychiatric Exam Psychiatric exam: Normal Affect, Normal Mood - Skin Skin Exam: Dry, Intact Results - Vital Signs Recent Vital Signs: Last Vital Signs Temp 97.6 F 03/29/18 10:03 Pulse 54 L 03/29/18 12:29 Resp 16 03/29/18 12:29 BP 124/74 03/29/18 12:29 Pulse Ox 100 03/29/18 13:01 - Labs Result Diagrams: 03/29/18 10:44 03/29/18 10:44 Labs: Laboratory Results - last 24 hr 03/29/18 03/29/18 03/29/18 10:44 10:44 10:44 WBC 10.2 RBC 3.92 L Hgb 12.5 Hct 37.5 MCV 95.7 H MCH 31.8 H MCHC 33.2 RDW 14.3 Plt Count 131 MPV 11.4 Neut % (Auto) 74.1 Lymph % (Auto) 17.4 L [place] % (Auto) 4.8 Eos % (Auto) 2.9 Baso % (Auto) 0.8 Neut # (Auto) 7.5 H Lymph # (Auto) 1.8 [place] # (Auto) 0.5 Eos # (Auto) 0.3 Baso # (Auto) 0.1 PT 11.8 INR 1.1 APTT 34 Sodium 139 Potassium 4.4 Chloride 107 Carbon Dioxide 24 Anion Gap 13 BUN 10 Creatinine 0.7 L Est GFR ( Amer) > 60 Est GFR (Non-Af Amer) > 60 Random Glucose 112 H Calcium 9.0 Total Bilirubin 0.4 AST 24 ALT 23 Alkaline Phosphatase 57 Total Protein 7.2 Albumin 4.4 Globulin 2.8 Albumin/Globulin Ratio 1.6 Assessment & Plan - Assessment and Plan (Free Text) Assessment: Post-op monitoring, s/p IR embolization of sphenopalantine arteries -Neurochecks Q15 x4, Q30 x2, Q 1 hr x2 --> 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 Carmel Arias, PGY-1
[2018-03-29 19:53] LABS: MEAN CELL VOLUME 96.1 fL (80.0-94.0); MEAN CORPUSCULAR HEMOGLOBIN 31.4 pg (27.0-31.0); MEAN CORPUSCULAR HGB CONC 32.7 g/dL (33.0-37.0); RBC 3.8 Mil/uL (4.40-5.90); RED CELL DISTRIBUTION WIDTH 14.5 % (11.5-14.5); WHITE BLOOD COUNT 8.7 K/uL (4.8-10.8)
[2018-03-29 20:38] VITALS: RESP 20
[2018-03-30 07:26] LABS: BASO % 0.4 % (0.0-2.0); EOS # 0.7 K/uL (0.0-0.7); EOS % 7.1 % (0.0-4.0); HEMOGLOBIN 12.1 g/dL (12.0-18.0); LYMPH # 2.1 K/uL (1.0-4.3); MEAN CELL VOLUME 95.8 fL (80.0-94.0); MEAN CORPUSCULAR HEMOGLOBIN 32.4 pg (27.0-31.0); MEAN CORPUSCULAR HGB CONC 33.8 g/dL (33.0-37.0); MEAN PLATELET VOLUME 11.5 fL (7.2-11.7); MONO # 0.6 K/uL (0.0-0.8); MONO % 6.5 % (0.0-10.0); NEUT # 6.4 K/uL (1.8-7.0); RBC 3.73 Mil/uL (4.40-5.90); RED CELL DISTRIBUTION WIDTH 14.4 % (11.5-14.5); WHITE BLOOD COUNT 9.9 K/uL (4.8-10.8)
[2018-03-30 07:57] VITALS: BP 101/64; TEMP 97.3; O2SAT 98
[2018-03-30 08:17] VITALS: PULSE 96
[2018-03-30 08:54] LABS: ALB/GLOB RATIO 1.4 (1.0-2.1); ALBUMIN 3.8 g/dL (3.5-5.0); ALT/SGPT 26 U/L (21-72); AST/SGOT 19 U/L (17-59); BLOOD UREA NITROGEN 10 mg/dL (9-20); CALCIUM 8.9 mg/dl (8.6-10.4); GFR NON-AFRICAN AMERICAN > 60
--- NOTE | 2018-03-30 13:31 | CP.PCM.DIS ---
Provider - Provider Date of Admission: 03/29/18 15:03 Attending physician: Farheen Burt DO Consults: 03/29/18 13:02 Physician Consult Stat Comment: EPISTAXIS FOR EMBOLIZATION Consulting Provider: Saw Aguilar Consulting Physician: Saw Aguilar Reason for Consult: NEURO INTERVENTIONAL Additional Comments: SPOKEN WITH Time Spent in preparation of Discharge (in minutes): 35 Hospital Course - Lab Results Lab Results: Most Recent Lab Values WBC 9.9 K/uL (4.8-10.8) 03/30/18 07:16 RBC 3.73 Mil/uL (4.40-5.90) L 03/30/18 07:16 Hgb 12.1 g/dL (12.0-18.0) 03/30/18 07:16 Hct 35.8 % (35.0-51.0) 03/30/18 07:16 MCV 95.8 fL (80.0-94.0) H 03/30/18 07:16 MCH 32.4 pg (27.0-31.0) H 03/30/18 07:16 MCHC 33.8 g/dL (33.0-37.0) 03/30/18 07:16 RDW 14.4 % (11.5-14.5) 03/30/18 07:16 Plt Count 127 K/uL (130-400) L 03/30/18 07:16 MPV 11.5 fL (7.2-11.7) 03/30/18 07:16 Neut % (Auto) 65.0 % (50.0-75.0) 03/30/18 07:16 Lymph % (Auto) 21.0 % (20.0-40.0) 03/30/18 07:16 [place] % (Auto) 6.5 % (0.0-10.0) 03/30/18 07:16 Eos % (Auto) 7.1 % (0.0-4.0) H 03/30/18 07:16 Baso % (Auto) 0.4 % (0.0-2.0) 03/30/18 07:16 Neut # (Auto) 6.4 K/uL (1.8-7.0) 03/30/18 07:16 Lymph # (Auto) 2.1 K/uL (1.0-4.3) 03/30/18 07:16 [place] # (Auto) 0.6 K/uL (0.0-0.8) 03/30/18 07:16 Eos # (Auto) 0.7 K/uL (0.0-0.7) 03/30/18 07:16 Baso # (Auto) 0.0 K/uL (0.0-0.2) 03/30/18 07:16 Differential Comment 03/29/18 19:30 PT 11.8 SECONDS (9.7-12.2) 03/29/18 10:44 INR 1.1 03/29/18 10:44 APTT 34 SECONDS (21-34) 03/29/18 10:44 Sodium 140 mmol/L (132-148) 03/30/18 07:16 Potassium 3.8 mmol/L (3.6-5.2) 03/30/18 07:16 Chloride 109 mmol/L (98-107) H 03/30/18 07:16 Carbon Dioxide 26 mmol/L (22-30) 03/30/18 07:16 Anion Gap 10 (10-20) 03/30/18 07:16 BUN 10 mg/dL (9-20) 03/30/18 07:16 Creatinine 0.8 mg/dL (0.8-1.5) 03/30/18 07:16 Est GFR ( Amer) > 60 03/30/18 07:16 Est GFR (Non-Af Amer) > 60 03/30/18 07:16 Random Glucose 91 mg/dL (75-110) 03/30/18 07:16 Calcium 8.9 mg/dl (8.6-10.4) 03/30/18 07:16 Phosphorus 3.7 mg/dL (2.5-4.5) 03/30/18 07:16 Magnesium 1.8 mg/dL (1.6-2.3) 03/30/18 07:16 Total Bilirubin 0.7 mg/dL (0.2-1.3) 03/30/18 07:16 AST 19 U/L (17-59) 03/30/18 07:16 ALT 26 U/L (21-72) 03/30/18 07:16 Alkaline Phosphatase 53 U/L (38-126) 03/30/18 07:16 Total Protein 6.4 g/dL (6.3-8.3) 03/30/18 07:16 Albumin 3.8 g/dL (3.5-5.0) 03/30/18 07:16 Globulin 2.6 gm/dL (2.2-3.9) 03/30/18 07:16 Albumin/Globulin Ratio 1.4 (1.0-2.1) 03/30/18 07:16 - Date & Time of H&P Date of H&P: 03/29/18 Discharge Exam - Head Exam Head Exam: ATRAUMATIC, NORMOCEPHALIC - Eye Exam Eye Exam: EOMI, Normal appearance Pupil Exam: NORMAL ACCOMODATION, PERRL - ENT Exam ENT Exam: Mucous Membranes Dry - Neck Exam Neck exam: Full Rom - Respiratory Exam Respiratory Exam: NORMAL BREATHING PATTERN - Neurological Exam Neurological exam: Alert, CN II-XII Intact, Normal Gait, Oriented x3, Reflexes Normal - Psychiatric Exam Psychiatric exam: Normal Affect - Skin Skin Exam: Normal Color, Warm Discharge Plan - Follow Up Plan Condition: GOOD Patient education suggested?: Yes Additional Instructions: [facility] Dr.Farkas Dr.Arcot Dr.Parrella-Turkel Dr.Liff Arceo Consolmagno MSNA,AGNP-BC,ELECTRONIC TECHNICIAN Mr.Diaz Salgado is Post-Op Day 1, Cerebral Angiogram, Embolization for recurrent epistaxis over the last month. Pt has cochlear implants and was referred by since he is not a candidate for cauterization. Pt is stable, no active bleeding noted via left or right nares. Right groin pressure dressing to be removed and replaced with 4x4 and tagaderm dressing prior to discharge. Right groin is soft with no ecchymosis noted and no active bleeding. Pt.VSS are stable and suggest discharge to home today. Plan: 1-May use petroleum jelly at the entrance of the nares to soften old dry blood 2-Follow-up with 3-May shower today and keep right groin dresssing dry and intact 4-May remove right groin dressing tomorrow 5-Report to nearest ED for any excessive bleeding from nares or right groin. 6-if I can be of further assistance feel free to call [phone]. Thank-you for allowing us to participate in the patients care.
--- NOTE | 2018-03-30 14:46 | CP.PCM.PN ---
Subjective - Date & Time of Evaluation Date of Evaluation: 03/30/18 Time of Evaluation: 14:49 - Subjective Subjective: PGY-[address] Burt Patient seen and examined at bedside. No acute events overnight. Patient tolerated procedure well. Neurologically intact. Patient only complaining of minor pain at catheterization site, as well as sore throat. Patient discharged today per IR. Objective - Vital Signs/Intake and Output Vital Signs (last 24 hours): Temp Pulse Resp BP Pulse Ox 97.3 F L 96 H 20 101/64 98 03/30/18 07:00 03/30/18 07:00 03/30/18 07:00 03/30/18 07:00 03/30/18 07:00 - Medications Medications: Current Medications Amlodipine Besylate (Norvasc) 5 mg PO DAILY [facility] Last Admin: 03/30/18 09:46 Dose: 5 mg Heparin Sodium (Porcine) (Heparin) 5,000 units SC Q8 [facility] Last Admin: 03/30/18 13:52 Dose: Not Given Heparin Sodium (Porcine) 4,000 (units/ Sodium Chloride) 1,004 mls @ 0 mls/hr IV ONCE [facility] Stop: 03/31/18 14:01 Losartan Potassium (Cozaar) 25 mg PO DAILY [facility] Last Admin: 03/30/18 09:46 Dose: 25 mg - Labs Labs: 03/30/18 07:16 03/30/18 07:16 PT 11.8 SECONDS (9.7-12.2) 03/29/18 10:44 INR 1.1 03/29/18 10:44 APTT 34 SECONDS (21-34) 03/29/18 10:44 - Constitutional Appears: Non-toxic, No Acute Distress - Head Exam Head Exam: ATRAUMATIC, NORMOCEPHALIC - Eye Exam Eye Exam: EOMI - ENT Exam ENT Exam: Mucous Membranes Moist Additional comments: Cochlear implants - Neck Exam Neck Exam: Full ROM, Normal Inspection - Respiratory Exam Respiratory Exam: Clear to Ausculation Bilateral, NORMAL BREATHING PATTERN. absent: Rhonchi, Wheezes - Cardiovascular Exam Cardiovascular Exam: REGULAR RHYTHM, +S1, +S2 - GI/Abdominal Exam GI & Abdominal Exam: Soft, Normal Bowel Sounds. absent: Tenderness - Extremities Exam Extremities Exam: absent: Pedal Edema, Tenderness - Neurological Exam Neurological Exam: Alert, Awake, Oriented x3 - Psychiatric Exam Psychiatric exam: Normal Affect, Normal Mood - Skin Skin Exam: Dry, Intact Assessment and Plan - Assessment and Plan (Free Text) Assessment: Post-op monitoring, s/p IR embolization of sphenopalantine arteries -Patient discharged per IR, should follow up recommendations per IR. Important to follow up with ENT as well. Assessment and plan d/w Dr. Carmel Arias, PGY-1
--- NOTE | 2018-03-31 19:32 | PCM.OP ---
Operative Report - Operative Report Date of Surgery/Procedure: 03/29/18 Time of Surgery/Procedure: 14:30 Surgeon: Saw Aguilar MD Anesthesia/Sedation: general Pre-Operative Diagnosis: posterior epistaxis on the right Post-Operative Diagnosis: same Indication for Surgery: epistaxis uncontrollable by general methods Operative Findings: PRE OPERATIVE DIAGNOSIS: EPISTAXIS POST OPERATIVE DIAGNOSIS: EPISTAXIS PROCEDURE: CEREBRAL AND HEAD AND NECK ANGIOGRAM WITH EMBOLIZATION OF BILATERAL SPHENOPALATINE ARTERIES REFERRING PHYSICIAN:DR. 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 Potential risks such as vascular injury, vascular occlusion, further stroke, intracranial hemorrhage and even were discussed. After I answered all their questions they gave their informed consent. ANESTHESIA: GENERAL ANESTHESIA PREOP MEDICATIONS: None INTRODUCTION: After the patient was placed under anesthesia, both groins were prepped and draped in the usual sterile fashion. A timeout procedure was documented, the patient's name date of and medical record number as well as the procedures to be performed was confirmed by the entire team, after everyone in the room agreed, the procedure continued. Using sterile Seldinger technique the right common femoral artery was punctured using 5F micropuncture Seldinger needle. Over a 3mm J wire a 5 Albanian sheath was introduced into the artery and then hooked up to a continuous heparinized flush system. Via the sheath a 5 Albanian Michael Catheter was introduced over a 0.35 Terumo glide wire, into the abdominal aorta, the catheter was than double flushed and subsequently hooked up to a separate continuous heparinized flush system. The following vessels were than sequentially selected. Digital angiographic acquisitions were than obtained: VESSELS SELECTED: The right common carotid artery was selected cervical views were obtained. The right internal carotid artery was selected intracranial views were obtained, High definition magnified oblique views of the intracranial circulation was also obtained. The right external carotid artery was selected Head and neck views were obtained The left common carotid artery was selected cervical views were obtained. The left internal carotid artery was selected intracranial views were obtained The left external carotid artery was selected and injected head and neck views were obtained DIAGNOSTIC IMAGING FINDINGS: injection of the right common carotid artery with cervical views demonstrate normal appearance to the external and internal carotid artery in the neck there is no evidence of stenosis or irregularity. Injection of the right internal carotid artery with intracranial views demonstrates normal appearance to the internal carotid artery and it's branches. There are no arterial aneurysms or vascular malformations. The arterial venous transit time is within normal limits. The ophthalmic artery is identified and arises from its normal location injection of the external carotid artery with views of the internal maxillary artery demonstrates no significant abnormality. Intervention: through the diagnostic catheter under road mapping conditions using a Synchro two wire and a velocity micro catheter the distal internal maxillary artery was catheterized. The catheter was placed at the origin of the spheno palatine vessels. Hand injection angiography in the AP lateral plane demonstrates that there is robust filling of the medial and lateral nasal arteries without evidence for extravasation for pseudoaneurysm. Under fluoroscopic and road mapping conditions using 50% contrast and embospheres 500 to 700 U embolization of the above arteries both medial and lateral nasal arteries until the was no antegrade flow. there was good penetration of the Embospheres Micro catheter was removed and repeat external carotid artery run post emboliz ation was performed demonstrating marked reduction in the blush of the spheno- palatine vessels the catheter was then placed into the left common carotid artery were further diagnostic imaging was performed. Injection of the left common carotid artery with cervical views demonstrates normal appearance to the internal and external carotid artery in the neck without significant abnormality. Injection of left internal carotid artery with intracranial views demonstrates filling of the middle and anterior cerebral artery there is no evidence for aneurysm or arteriovenous malformation. Injection of left external carotid artery with head and neck views demonstrates normal appearance to the internal maxillary artery and his branches. No supply to intracranial collaterals are noted. There is a smaller internal maxillary sphenopalatine artery on this side. intervention: the catheter was an advanced under fluoroscopic and road mapping conditions to the distal internal maxillary artery into the proximal's Sphenopalatine branches micro catheter injection demonstrates good filling of these branches, the branches however are very small compared to the other side suggesting that there is hypertrophy on the right compared to the left. Embolization of these vessels was performed with embospheres followed by gel foam pledgets to get occlusion. follow-up angiogram demonstrates no filling of the previously emboli vessels. At this point the catheter was removed and compression held over the right common femoral artery until hemostasis was obtained. The patient awoke without any change in neurologic status. The patient tolerated the procedure well were no complications during the procedure. IMPRESSION: BILATERAL SPHENOPALATINE EMBOLIZATION FOR NASAL EPISTAXIS INTRAOPERATIVE MEDICATIONS: MATERIALS UTILIZED: If you have any questions regarding this procedure or regarding the patient please do not hesitate to contact me at [phone] Sincerely, Saw Aguilar MD. [facility] Procedure/Operation Description: see note Estimated Blood Loss: 10 ml Complications: none Discharge & Condition: stable
== END 2018-03-30 15:15 | disposition home or self-care (01) | DRG 983 ==
LOC: C.ER 09:56 → INTOOBSV 13:01 → C.9E 13:01 → C.ER 13:09 → OBSVTOIN 15:03 → C.6T 18:32
PROVIDERS: ADMIT Hospitalist; ATTEND Hospitalist
PROC: 03C Upper Arteries, Extirpation (ICD-10-PCS; principal; 2018-03-29)
PROC: B3191ZZ Fluoroscopy of Right External Carotid Artery using Low Osmolar Contrast (ICD-10-PCS; 2018-03-29)
PROC: B31R1ZZ Fluoroscopy of Intracranial Arteries using Low Osmolar Contrast (ICD-10-PCS; 2018-03-29)
PROC: B3161ZZ Fluoroscopy of Right Internal Carotid Artery using Low Osmolar Contrast (ICD-10-PCS; 2018-03-29)
DX: R04.0 Epistaxis (principal); I10 Essential (primary) hypertension; H91.93 Unspecified hearing loss, bilateral; Z79.899 Other long term (current) drug therapy

== ENCOUNTER 2018-03-30 20:15 | Emergency (ER) | payer MEDICARE, MEDICAID ==
[2018-03-30] MEDS ORDERED: Oxymetazoline 0.05% Nasal Spray (30 ml) NS STA (21:47)
[2018-03-30] MEDS ORDERED: Oxymetazoline 0.05% Nasal Spray (30 ml) NS ONE (21:54)
[2018-03-30 21:59] LABS: BASO # 0.1 K/uL (0.0-0.2); EOS # 0.6 K/uL (0.0-0.7); EOS % 5.7 % (0.0-4.0); LYMPH # 2.8 K/uL (1.0-4.3); LYMPH % 29.5 % (20.0-40.0); MEAN CORPUSCULAR HEMOGLOBIN 31.1 pg (27.0-31.0); MEAN CORPUSCULAR HGB CONC 33.2 g/dL (33.0-37.0); MONO # 0.6 K/uL (0.0-0.8); MONO % 6.5 % (0.0-10.0); NEUT # 5.5 K/uL (1.8-7.0); NEUT % 57.3 % (50.0-75.0); NRBC % 0.1 % (0.0-2.0); RBC 3.87 Mil/uL (4.40-5.90); RED CELL DISTRIBUTION WIDTH 14.5 % (11.5-14.5); WHITE BLOOD COUNT 9.6 K/uL (4.8-10.8)
[2018-03-30 22:04] LABS: MEAN CELL VOLUME 93.8 fL (80.0-94.0)
[2018-03-30 22:07] LABS: INR 1.2; PROTHROMBIN TIME 12.9 SECONDS (9.7-12.2)
--- NOTE | 2018-03-30 22:14 | C.PDOC ---
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 On arrival patient is no longer bleeding, only has some dried blood on right nare. Denies fever or other complaints. Time Seen by Provider: 03/30/18 21:38 Chief Complaint (Nursing): ENT Problem History Per: Patient History/Exam Limitations: None Onset/Duration Of Symptoms: Mins Current Symptoms Are (Timing): Better Past Medical History Reviewed: Historical Data, Nursing Documentation, Vital Signs Vital Signs: Last Vital Signs Temp 99.3 F 03/30/18 20:21 Pulse 79 03/30/18 20:21 Resp 16 03/30/18 20:21 BP 124/78 03/30/18 20:21 Pulse Ox 96 03/30/18 20:21 - Medical History PMH: HTN - [facility] Procedures PACKING OF NASAL REGION USING PACKING MATERIAL (03/05/18) Family History: States: No Known Family Hx - Social History Hx Alcohol Use: Yes Hx Substance Use: No - Immunization History Hx Tetanus Toxoid Vaccination: Yes Hx Influenza Vaccination: Yes Hx Pneumococcal Vaccination: Yes Review Of Systems Constitutional: Negative for: Fever, Chills ENT: Positive for: Other (Epistaxis) Cardiovascular: Negative for: Chest Pain, Palpitations Respiratory: Negative for: Cough, Shortness of Breath Gastrointestinal: Negative for: Nausea, Vomiting Neurological: Negative for: Weakness, Numbness Physical Exam - Physical Exam Appears: Non-toxic Skin: Normal Color, Warm, Dry Head: Atraumatic, Normacephalic Eye(s): bilateral: Normal Inspection Nose: Other (Dried blood in right nare, no active bleeding) Oral Mucosa: Moist Neck: Normal, Supple Chest: Symmetrical, No Tenderness Cardiovascular: Rhythm Regular Respiratory: Normal Breath Sounds, No Rales, No Rhonchi, No Wheezing Gastrointestinal/Abdominal: Soft, No Tenderness Neurological/Psych: Oriented x3, Normal Speech ED Course And Treatment - Laboratory Results Result Diagrams: 03/30/18 21:49 03/30/18 21:49 Lab Results: PT 12.9 SECONDS (9.7-12.2) H 03/30/18 21:49 INR 1.2 03/30/18 21:49 APTT 31 SECONDS (21-34) 03/30/18 21:49 O2 Sat by Pulse Oximetry: 96 (Room air) Pulse Ox Interpretation: Normal Medical Decision Making Medical Decision Making: Discussed with Dr. Aguilar and Dr. Auguste, as per Dr. Auguste if patient's H&H is stable he is to be observed in the ER and have him follow up at the office at 0900. observe din er 4 hours. no bleeding. advise strict return precaution Disposition - Disposition Referrals: Adam Auguste MD [Staff Provider] - Disposition: HOME/ ROUTINE Disposition Time: 12:00 Condition: STABLE Additional Instructions: follow up with dr auguste in am. return to any er with repeat bleeding. Instructions: Nosebleeds Forms: [facility] (Slovenian) - Clinical Impression Clinical Impression: Epistaxis - Scribe Statement The provider has reviewed the documentation as recorded by the Scribe Adam Adams All medical record entries made by the Scribe were at my direction and personally dictated by me. I have reviewed the chart and agree that the record accurately reflects my personal performance of the history, physical exam, medical decision making, and the department course for this patient. I have also personally directed, reviewed, and agree with the discharge instructions and disposition.
[2018-03-30 22:15] LABS: ALB/GLOB RATIO 1.6 (1.0-2.1); ALBUMIN 4.2 g/dL (3.5-5.0); ALT/SGPT 17 U/L (21-72); AST/SGOT 19 U/L (17-59); BLOOD UREA NITROGEN 13 mg/dL (9-20); GFR NON-AFRICAN AMERICAN > 60
[2018-03-31 00:02] VITALS: BP 124/73; PULSE 66; RESP 18; TEMP 97.7
[2018-03-31 13:52] VITALS: O2SAT 96
== END 2018-03-31 00:02 | disposition home or self-care (01) ==
LOC: C.ER 20:15
DX: R04.0 Epistaxis (principal); I10 Essential (primary) hypertension